=== PATIENT | female | born 1990 | race Native Hawaiian/Other Pacific Islander ===

== ENCOUNTER 2017-09-19 09:22 | Outpatient (CLI) | payer OTHER ==
[~2017-09-19 09:22] MED LIST: TRAM50TA PO
[2017-09-19 09:41] LABS: PLATELET COUNT 260 K/uL (152-353)
== END 2017-09-19 19:10 | disposition home or self-care (01) ==
LOC: EDP 09:22
PROVIDERS: Internal Medicine
DX: R10.32 Left lower quadrant pain (principal)
CPT/HCPCS: 36415; 80053; 82150; 83690; 85027

== ENCOUNTER 2017-09-27 10:50 | Outpatient (CLI) | payer OTHER | END 2017-09-27 19:12 | disposition home or self-care (01) | LOC: CT 10:50 | DX: R10.32 Left lower quadrant pain (principal) | CPT/HCPCS: Q9963 ==

== ENCOUNTER 2017-11-28 17:59 | Outpatient (CLI) | payer OTHER | END 2017-11-28 23:26 | disposition home or self-care (01) | LOC: LAB 17:59 | DX: N30.01 Acute cystitis with hematuria (principal) | CPT/HCPCS: 87077; 87086; 87088; 87186 ==

== ENCOUNTER 2018-10-31 15:03 | Outpatient (CLI) | payer OTHER ==
[2018-10-31 15:12] LABS: PLATELET COUNT 294 K/uL (152-353)
[2018-10-31 16:23] LABS: POTASSIUM 4.1 mmol/L (3.6-5.2)
== END 2018-10-31 23:49 | disposition home or self-care (01) ==
LOC: LABW 15:03
PROVIDERS: Physician Assistant
DX: N30.90 Cystitis, unspecified without hematuria (principal); R53.83 Other fatigue; R30.0 Dysuria
CPT/HCPCS: 36415; 80053; 80061; 83036; 83735; 84436; 84439; 84443; 85027

== ENCOUNTER 2018-10-31 16:22 | Outpatient (CLI) | payer OTHER | END 2018-10-31 23:50 | disposition home or self-care (01) | LOC: LAB 16:22 | DX: N30.90 Cystitis, unspecified without hematuria (principal) | CPT/HCPCS: 87077; 87086; 87088; 87185; 87186 ==

== ENCOUNTER 2019-12-21 09:55 | Outpatient (CLI) | payer OTHER | END 2019-12-21 23:31 | disposition home or self-care (01) | LOC: US 09:55 | DX: R10.13 Epigastric pain (principal) ==

== ENCOUNTER 2020-02-25 16:30 | Outpatient (CLI) | payer OTHER ==
[2020-02-25 16:54] LABS: PLATELET COUNT 312 K/uL (152-353)
[2020-02-25 17:43] LABS: POTASSIUM 3.9 mmol/L (3.6-5.2)
== END 2020-02-25 18:56 | disposition home or self-care (01) ==
LOC: LABW 16:30
PROVIDERS: ATTEND Nurse Practitioner
DX: R35.0 Frequency of micturition (principal); Z68.41 Body mass index [BMI] 40.0-44.9, adult
CPT/HCPCS: 36415; 80053; 80061; 81000; 85027